=== PATIENT | female | born 2000 | race Caucasian/White ===

== ENCOUNTER 2021-07-04 05:10 | Emergency (ER) | payer OTHER ==
[2021-07-04 05:42] VITALS: BP 121/68
--- NOTE | 2021-07-04 05:42 | EDM.PDOC ---
ED HPI GENERAL MEDICAL PROBLEM - General Chief Complaint: Respiratory Problem Stated Complaint: TROUBLE BREATHING, COUGH, SORE THROAT Time Seen by Provider: 07/04/21 05:38 Source of Information: Reports: Patient History Limitations: Reports: No Limitations - History of Present Illness INITIAL COMMENTS - FREE TEXT/NARRATIVE: Patient is an unfortunate 21-year-old female who presents emerged department today with complaint of sore throat cough congestion runny nose fever. Patient reports that symptoms started 3 days ago and worsened ever since. She reports that she has a deep cough that is productive with white sputum she has had fever chills and a sore throat. The patient has a history of tonsillectomy and reports that her symptoms of worsened so she presented to emergency department for further evaluation. She denies any known Covid exposure, she has not received the Covid vaccination. Anterior and posterior rib cage pain. Pain Score (Numeric/FACES): 9 - Related Data Allergies Allergy/AdvReac Type Severity Reaction Status Date / Time lamotrigine [From Lamictal] Allergy Rash Verified 07/04/21 05:31 Home Meds: Home Meds medroxyPROGESTERone Acetate [Depo-Provera] 150 mg IM ASDIRECTED 04/05/19 [History] Past Medical History - Past Health History Medical/Surgical History: Denies Medical/Surgical History HEENT History: Reports: Impaired Vision, Other (See Below) Other HEENT History: strep, wears glasses and contacts Gastrointestinal History: Reports: Other (See Below) Other Gastrointestinal History: currently has abdominal pain 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 - Living Situation & Occupation Living situation: Reports: with Family (lives with her father) Occupation: Employed ED ROS GENERAL - Review of Systems Review Of Systems: See Below Constitutional: Reports: Fever, Chills HEENT: Reports: Rhinitis, Throat Pain Respiratory: Reports: Cough. Denies: Shortness of Breath, Wheezing, Pleuritic Chest Pain ED EXAM, GENERAL - Physical Exam Exam: See Below Exam Limited By: No Limitations General Appearance: Alert, WD/WN, Mild Distress Ears: Normal External Exam, Normal Canal, Hearing Grossly Normal, Normal TMs Nose: Nasal Drainage, Clear Rhinorrhea Throat/Mouth: Other (mild pharyngeal erythema) Neck: Normal Inspection, Supple, Non-Tender, Full Range of Motion Respiratory/Chest: No Respiratory Distress, Lungs Clear, Normal Breath Sounds, No Accessory Muscle Use, Chest Non-Tender Cardiovascular: Normal Peripheral Pulses, Regular Rate, Rhythm, No Edema, No Gallop, No JVD, No Murmur, No Rub GI/Abdominal: Normal Bowel Sounds, Soft, Non-Tender, No Organomegaly, No Distention, No Abnormal Bruit, No Mass Back Exam: Normal Inspection, Full Range of Motion, NT Extremities: Normal Inspection, Normal Range of Motion, Non-Tender, Normal Capillary Refill, No Pedal Edema Neurological: Alert, Oriented, CN II-XII Intact, Normal Cognition, Normal Gait, Normal Reflexes, No Motor/Sensory Deficits Skin Exam: Warm, Dry, Intact, No Rash Course - Vital Signs Text/Narrative:: The patient refuses Covid testing at this time and says she would just rather leave instead, the patient will be discharged home and encouraged to follow-up outpatient with her PCP or to return the emergency department for any worsening condition. I suspect the patient does have Covid but we are unable to verify this at this time Last Recorded V/S: Last Vital Signs Temp 98.8 F 07/04/21 05:20 Pulse 103 H 07/04/21 05:20 Resp 22 H 07/04/21 05:20 BP 138/94 H 07/04/21 05:20 Pulse Ox 100 07/04/21 05:20 Departure - Departure Time of Disposition: 05:41 Disposition: Home, Self-Care 01 Condition: Good Clinical Impression: Upper respiratory infection Qualifiers: URI type: unspecified URI Qualified Code(s): J06.9 - Acute upper respiratory infection, unspecified - Discharge Information *PRESCRIPTION DRUG MONITORING PROGRAM REVIEWED*: No *COPY OF PRESCRIPTION DRUG MONITORING REPORT IN PATIENT DEONNA: No Instructions: Viral Respiratory Infection Test Additional Instructions: Home, rest, adequate fluids, Tylenol as needed for fever or pain, you may utilize any [id number] cough medicine or throat lozenges, I suspect you may have Covid but were unable to determine this due to no testing, return as needed for any worsening condition Sepsis Event Note (ED) - Focused Exam Vital Signs: Vital Signs Temp Pulse Resp BP Pulse Ox 07/04/21 05:20 98.8 F 103 H 22 H 138/94 H 100
[2021-07-04 05:51] VITALS: PULSE 100
== END 2021-07-04 05:49 | disposition home or self-care (01) ==
LOC: DL.ED 05:10
DX: J06.9 Acute upper respiratory infection, unspecified (principal); Z88.8 Allergy status to other drugs, medicaments and biological substances
CPT/HCPCS: 99283